=== PATIENT | female | born 2000 | race Caucasian/White ===

== ENCOUNTER 2020-09-04 06:43 | Day surgery (SDC) | payer BC ==
[2020-09-03 10:39] VITALS: BMI 27.3
[2020-09-04] MEDS ORDERED: SUGAMMADEX SODIUM 500 MG/5 ML VIAL ONE (08:08)
[2020-09-04] MEDS ORDERED: Fentanyl 100 MCG/2 ML VIAL ONE ×3 (08:08→09:52)
[2020-09-04] MEDS ORDERED: Dexamethasone 20 MG/5 ML VIAL ONE ×2 (08:08→08:20)
[2020-09-04] MEDS ORDERED: Ondansetron PF 4 MG/2 ML Vial ONE ×2 (08:08→08:20)
[2020-09-04] MEDS ORDERED: Rocuronium Bromide 50 MG/5 ML VIAL ONE ×3 (08:09→09:11)
[2020-09-04] MEDS ORDERED: Midazolam HCl 2 mg/2 ml Vial ONE (08:09)
[2020-09-04] MEDS ORDERED: Lidocaine 2% PF 5 ML VIAL ONE (08:09)
[2020-09-04] MEDS ORDERED: PROPOFOL 20 ML ONE (08:09)
[2020-09-04] MEDS ORDERED: Lidocaine 1% PF 5 ML VIAL ONE (08:20)
[2020-09-04] MEDS ORDERED: Rocuronium Bromide 10 MG/ML (10ML VIAL) ONE (08:20)
[2020-09-04] MEDS ORDERED: PROPOFOL 200 MG/20 ML VIAL ONE (08:20)
[2020-09-04] MEDS ORDERED: Ferric Subsulfate (ASTRINGYN) 8 GM VIAL ONE (08:38)
[2020-09-04] MEDS ORDERED: Meperidine HCl/PF 25 MG/ML VIAL ONE (09:00)
[2020-09-04] MEDS ORDERED: Hydrocodone-Acetamin 15 ML UDCUP ONE (11:30)
== END 2020-09-04 13:05 | disposition home or self-care (01) ==
LOC: SDC 06:43
PROVIDERS: ATTEND Specialist
PROC: 0CTPXZZ Resection of Tonsils, External Approach (ICD-10-PCS; principal; 2020-09-04)
DX: J35.01 Chronic tonsillitis (principal); J02.9 Acute pharyngitis, unspecified; G40.909 Epilepsy, unspecified, not intractable, without status epilepticus; E03.9 Hypothyroidism, unspecified; F17.290 Nicotine dependence, other tobacco product, uncomplicated; Z79.899 Other long term (current) drug therapy; Z88.5 Allergy status to narcotic agent; Z88.8 Allergy status to other drugs, medicaments and biological substances
CPT/HCPCS: 88304; J1100; J2001; J2175; J2250; J2405; J2704; J3010